=== PATIENT | female | born 1950 | race Caucasian/White ===

== ENCOUNTER 2021-03-06 16:03 | Emergency (ER) | payer OTHER ==
[~2021-03-06] VITALS: Ht 160 cm; Wt 69.8 kg
[~2021-03-06 16:03] MED LIST: ALDACTONE25 MG PO; AMITIZA 24 MCG24 MCG PO; COLACE100 MG PO; DEMEROL50 MG PO; ESTRADIOL 1 MG T1 M1 PO; FERREX 150150 MG PO; FLEXERIL PO; GRALISE600 MG PO; HARD NAILS2500 MCG PO; KETOCONAZOLE60 GM TP; L-METHYL-MC TA1 EACH PO; LASIX 20 MG TAB20 MG PO; MIRALAX17 G1 PO; NEXIUM40 MG PO; OMEGA-31000 M1 PO; POTASSIUM20 PO; PROBIOTIC1 EAC1 PO; PROGESTERONE200 MG PO; SEROQUEL 25 MG25 M1 PO; TRAZODONE HCL100 MG PO; VITAMIN B-12500 MCG PO; VITAMIN D2000 UNI1 PO; VITAMIN E400 UNIT PO; VITAMIN K100 MCG PO; WELLBUTRIN XL300 MG PO; WOMEN'S DAILY1 EAC2 PO; XANAX 0.5 MG0.5 MG PO
[2021-03-06 16:32] VITALS: BP 171/57
== END 2021-03-06 21:19 | disposition home or self-care (01) ==
LOC: ER 16:03
DX: M25.511 Pain in right shoulder (principal); M79.652 Pain in left thigh; Z85.51 Personal history of malignant neoplasm of bladder; Z98.890 Other specified postprocedural states; Z79.891 Long term (current) use of opiate analgesic; Z79.1 Long term (current) use of non-steroidal anti-inflammatories (NSAID); Z79.899 Other long term (current) drug therapy; Z88.5 Allergy status to narcotic agent; Z88.0 Allergy status to penicillin; Z88.6 Allergy status to analgesic agent; W19.XXXA Unspecified fall, initial encounter; Y93.89 Activity, other specified; Y92.89 Other specified places as the place of occurrence of the external cause; Y99.8 Other external cause status